=== PATIENT | male | born 1945 | race Caucasian/White ===

== ENCOUNTER → 2020-09-19 11:37 | Outpatient (CLI) | payer MEDICARE, OTHER, SELFPAY ==
--- NOTE | 2020-09-19 | DI.MRI.S_ITS ---
PROCEDURE: MR BRAIN (IAC) WWO CON INDICATIONS: Tinnitus bilat ears TECHNIQUE: Noncontrast sagittal T1 spin echo, axial FLAIR, axial gradient echo, axial diffusion and ADC through the brain. Axial thin-slice 3D CISS, coronal TruFISP, axial T1 spin echo with fat saturation through the internal auditory canals. After the administration of contrast, thin slice axial and coronal T1 spin echo with fat saturation through the internal auditory canals, and axial T1 spin echo with fat saturation through the brain. COMPARISON: None. FINDINGS: Image quality: Excellent. Cerebellopontine angles: No cerebellopontine angle masses. Inner ear structures appear normally formed. No suspicious enhancement in the internal auditory canal or along the course of the 7th cranial nerve. CSF spaces: Ventricles are normal in size and shape. No extra-axial fluid collections. Basal cisterns are patent. Brain: Mild global cerebral volume loss. No intracranial bleeds or mass effects. Parmar-white matter interface is intact. No abnormal intracranial enhancement. Diffusion weighted images demonstrate no acute ischemic insults. Brainstem appears normal. Normal intravascular flow voids are present. Skull and face: Calvarial marrow signal is normal. Orbits appear normal. Sinuses: Small right mastoid air cell effusion. Left mastoid air cells clear. Left maxillary sinus mucosal thickening and mucous retention cyst. IMPRESSION: 1. No finding to explain tinnitus. 2. No acute intracranial abnormality otherwise. 3. Global cerebral volume loss. Dictated by: Collins Dueñas M.D. on 09/19/2020 at 14:03 Approved by: Collins Dueñas M.D. on 09/19/2020 at 14:06
--- NOTE | 2020-09-19 | DI.US.S_ITS ---
PROCEDURE: US CAROTID DOPPLER BI INDICATIONS: Tinnitus bilat ears TECHNIQUE: Color and pulse Doppler interrogation was performed of both carotid systems, with image documentation and velocity measurements. COMPARISON: None. FINDINGS: Stenosis calculations are based on SRU (S[employer] in Ultras[employer]) criteria. Right side: Brachial blood pressure: 118/68 mm Hg. Common carotid artery peak systolic velocity: 94 centimeters/second Internal carotid artery peak systolic velocity: 114 centimeters/second Internal carotid artery end diastolic velocity: 23 cm/sec. External carotid artery peak systolic velocity: 104 cm/sec. ICA/CCA peak systolic ratio: 1.2 . Parmar scale imaging description: Mild to moderate soft plaque Percent internal carotid artery stenosis: Less than 50% stenosis . Vertebral artery: Flow direction is antegrade. Left side: Brachial blood pressure: 119/70 mm Hg. Common carotid artery peak systolic velocity: 106 cm/sec. Internal carotid artery peak systolic velocity: 148 cm/sec. Internal carotid artery end diastolic velocity: 34 cm/sec. External carotid artery peak systolic velocity: 137 cm/sec. ICA/CCA peak systolic ratio: 1.4 . Parmar scale imaging description: Moderate soft plaque Percent internal carotid artery stenosis: 50-69% stenosis . Vertebral artery: Flow direction is antegrade. IMPRESSION: Less than 50% stenosis at the proximal internal carotid artery on the right, 50-69% stenosis is suspected at the proximal left internal carotid artery based on elevated flow velocity through that area and the asymmetrically greater degree plaque within the vessel on the left in that area when compared to that on the right. Dictated by: Álvaro Lopez M.D. on 09/19/2020 at 15:06 Approved by: Álvaro Lopez M.D. on 09/19/2020 at 15:12
== END ==
PROVIDERS: PCP Family Medicine; Referring Provider Family Medicine; Visit Provider Otolaryngology
DX: H93.13 Tinnitus, bilateral (principal)
CPT/HCPCS: 70553; 93880

== ENCOUNTER → 2022-06-22 09:04 | Outpatient (CLI) | payer MEDICARE, OTHER, SELFPAY ==
--- NOTE | 2022-06-22 | DI.MRI.S_ITS ---
PROCEDURE: MR LUMBAR SPINE WO CON INDICATIONS: CLAUDICATION BILATERAL/DJD LUMBAR SPINE TECHNIQUE: Noncontrast sagittal T1 spin echo and T2 fast echo, sagittal STIR, and T2 fast spin echo through the lumbar spine. In cases with scoliosis, additional coronal T2 fast spin echo may be performed. COMPARISON: None. FINDINGS: Image quality: Excellent. Alignment and Curvature: Grade 1 retrolisthesis noted at L2-3 grade 1 anterior spondylolisthesis at L4-5. Bone Marrow: Marrow is of normal overall signal. No acute vertebral body compression fractures. Spinal Cord: Conus medullaris terminates at the L1 level. Visualized cord demonstrates normal signal and size. Paraspinous Soft Tissues: No paravertebral masses. T12-L1: Mild disc space narrowing and circumferential disc bulge associated with mild central stenosis. Mild right and moderate left foraminal stenosis present. L2-3: A disc space narrowing and hypertrophic facet joints combine with dorsal epidural fat to result in moderate central stenosis. Moderate bilateral foraminal stenosis greater on the left. L3-4: Disc space narrowing with circumferential disc bulge and epidural fat combines with hypertrophic facet joints to result in moderate central stenosis. Moderate bilateral foraminal stenosis present. L4-5: Disc height is preserved. Circumferential disc bulge, hypertrophic facet joints and ligamentum flavum laxity all combined result in severe central stenosis. Moderate bilateral foraminal stenosis. L5-S1: Disc height is preserved. Hypertrophic facet joints, small disc bulge and hypertrophic facet joints combined result in moderate to severe central stenosis. Severe right and moderate left foraminal stenosis. IMPRESSION: Multilevel degenerative disc disease and arthropathy results in varying degrees of central and foraminal stenosis including severe central stenosis at L4-5 and moderate to severe central stenosis at L5-S1 Approved by: Jg Barron M.D. on 06/22/2022 at 12:43
== END ==
PROVIDERS: PCP Internal Medicine; Referring Provider Internal Medicine; Visit Provider Internal Medicine
DX: M51.37 Other intervertebral disc degeneration, lumbosacral region (principal); M51.36 Other intervertebral disc degeneration, lumbar region; M47.816 Spondylosis without myelopathy or radiculopathy, lumbar region; M47.817 Spondylosis without myelopathy or radiculopathy, lumbosacral region; M48.061 Spinal stenosis, lumbar region without neurogenic claudication; M48.07 Spinal stenosis, lumbosacral region; I73.9 Peripheral vascular disease, unspecified
CPT/HCPCS: 72148